=== PATIENT | male | born 1965 | race Caucasian/White ===

== ENCOUNTER 2018-07-02 12:28 | Emergency (ER) | payer BC ==
[2018-07-02] MEDS ORDERED: ADENOSINE 6 MG/2 ML VIAL ONE (12:38)
[2018-07-02] MEDS ORDERED: ADENOSINE 6 MG/2 ML VIAL IVP ONE (12:48)
[2018-07-02] MEDS ORDERED: NS 1,000 ML IV ONE (12:49)
[2018-07-02 13:06] LABS: PLATELET COUNT 178 10^3/uL (150-400)
--- NOTE | 2018-07-02 13:06 | CPEKG ---
Test Reason : OPEN Blood Pressure : / mmHG Vent. Rate : 190 BPM Atrial Rate : 192 BPM P-R Int : 000 ms QRS Dur : 092 ms QT Int : 269 ms P-R-T Axes : 000 069 009 degrees QTc Int : [address] depression, probably rate related Confirmed by Blayne Sanchez ([id number]) on 07/02/2018 1:06:48 PM Referred By: PHYSICIAN ED Confirmed By:Blayne Sanchez
--- NOTE | 2018-07-02 14:04 | EDPHY ---
H & P Time Seen by Provider: 07/02/18 12:48 HPI/ROS: Chief complaint. Rapid heart rate HPI. Patient is a 53-year-old male with known history of SVT. He presents with rapid heart rate beginning about 1 hr ago. No chest discomfort other than awareness of rapid beat. No shortness of breath. Slight lightheaded. Similar symptoms to previous. Sometimes the patient can stop the rapid heartbeat himself. Otherwise he has previously had adenosine with success. Visiting from [place]. Otherwise not ill. ROS 10 systems were reviewed and negative with the exception of the elements mentioned in the history of present illness Past Medical/Surgical History: SVT, hypertension, dyslipidemia Social History: , nonsmoker, no alcohol Smoking Status: Never smoked Physical Exam: General Appearance: Alert well-developed male moderate distress vital signs significant for heart rate 2 0 for Eyes: Pupils equal and round no pallor or injection. ENT, Mouth: Mucous membranes are moist. Respiratory: There are no retractions, lungs are clear to auscultation. Cardiovascular: Regular rate and rhythm. Tachycardia Gastrointestinal: Abdomen is soft and nontender, no masses, bowel sounds normal. Neurological: Awake and alert, sensory and motor exams grossly normal. Skin: Warm and dry, no rashes. Musculoskeletal: Neck is supple nontender. Extremities symmetrical, full range of motion. Psychiatric: Patient is oriented X 3, there is no agitation. Constitutional: Initial Vital Signs Temperature (C) 37.1 C 07/02/18 12:31 Heart Rate 204 H 07/02/18 12:31 Respiratory Rate 16 07/02/18 12:31 Blood Pressure 143/98 H 07/02/18 12:31 O2 Sat (%) 16 L 07/02/18 12:31 O2 Delivery Mode Room Air Home Medications: Medication Instructions Recorded Metoprolol Tartrate 07/02/18 Multivitamins 07/02/18 Simvastatin 07/02/18 Medical Decision Making - Diagnostics EKG Interpretation: EKG shows SVT. Normal axis. QRS is normal. Really no significant ST elevation or depression. The rate is 190 Post conversion EKG shows sinus tachycardia with normal interval and axis. QRS is normal there is no significant ST elevation or depression. No arrhythmia. The rate is 111 Imaging Results: Imaging Impressions Chest X-Ray 07/02/18 12:49 Impression: Negative portable chest. Procedures: IV normal saline. Adenosine 6 mg IV push ED Course/Re-evaluation: Patient converts to normal sinus rhythm with 6 mg of adenosine. Re-evaluation 2:05 p.m.. Patient is without symptoms. Current heart rate is 78 with blood pressure 149/92 Patient and I discussed EKG and lab results. We discussed treatment plan including criteria for return and importance of follow-up and further evaluation. He expresses understanding and agreement Differential Diagnosis: SVT which he has had before. I considered acute coronary syndrome, electrolyte abnormality - Data Points Laboratory Results: Laboratory Results 07/02/18 12:45 07/02/18 12:45 07/02/18 07/02/18 07/02/18 12:49 12:45 12:45 WBC 7.02 10^3/uL 10^3/uL (3.80-9.50) RBC 5.06 10^6/uL 10^6/uL (4.40-6.38) Hgb 15.2 g/dL g/dL (13.7-17.5) Hct 44.6 % % (40.0-51.0) MCV 88.1 fL fL (81.5-99.8) MCH 30.0 pg pg (27.9-34.1) MCHC 34.1 g/dL g/dL (32.4-36.7) RDW 12.3 % % (11.5-15.2) Plt Count 178 10^3/uL 10^3/uL (150-400) MPV 11.4 fL fL (8.7-11.7) Neut % (Auto) 36.1 % L % (39.3-74.2) Lymph % (Auto) 51.1 % H % (15.0-45.0) Tompkins % (Auto) 10.4 % % (4.5-13.0) Eos % (Auto) 1.9 % % (0.6-7.6) Baso % (Auto) 0.4 % % (0.3-1.7) Nucleat RBC Rel Count 0.0 % % (0.0-0.2) Absolute Neuts (auto) 2.53 10^3/uL 10^3/uL (1.70-6.50) Absolute Lymphs (auto) 3.59 10^3/uL H 10^3/uL (1.00-3.00) Absolute Monos (auto) 0.73 10^3/uL 10^3/uL (0.30-0.80) Absolute Eos (auto) 0.13 10^3/uL 10^3/uL (0.03-0.40) Absolute Basos (auto) 0.03 10^3/uL 10^3/uL (0.02-0.10) Absolute Nucleated RBC 0.00 10^3/uL 10^3/uL (0-0.01) Immature Gran % 0.1 % % (0.0-1.1) Immature Gran # 0.01 10^3/uL 10^3/uL (0.00-0.10) Sodium 139 mEq/L mEq/L (135-145) Potassium 4.3 mEq/L mEq/L (3.5-5.2) Chloride 102 mEq/L mEq/L (97-110) Carbon Dioxide 26 mEq/l mEq/l (22-31) Anion Gap 11 mEq/L mEq/L (6-14) BUN 19 mg/dL mg/dL (7-23) Creatinine 0.8 mg/dL mg/dL (0.7-1.3) Estimated GFR > 60 Glucose 91 mg/dL mg/dL (70-100) Calcium 9.6 mg/dL mg/dL (8.5-10.4) POC Troponin I 0.00 ng/mL ng/mL (0.00-0.08) Medications Given: Discontinued Medications Adenosine (Adenosine) 6 mg IVP EDNOW ONE Stop: 07/02/18 12:49 Last Admin: 07/02/18 12:54 Dose: 6 mg Sodium Chloride (Ns) 1,000 mls @ 0 mls/hr IV EDNOW ONE; Wide Open PRN Reason: Protocol Stop: 07/02/18 12:50 Last Admin: 07/02/18 12:54 Dose: 1,000 mls Point of Care Test Results: Chemistry 07/02/18 12:49 POC Troponin I 0.00 ng/mL ng/mL (0.00-0.08) Departure - Departure Disposition: Home, Routine, Self-Care Clinical Impression: Supraventricular tachycardia Condition: Good Instructions: Supraventricular Tachycardia (ED) Additional Instructions: Drink plenty of fluids and stay hydrated. Continue regular medication Easy activity next 1-2 days. Do not go up in altitude. Return for chest discomfort, for rapid heart rate, trouble breathing Follow-up with your regular physician upon return home to [place] Referrals: LYNDSEY BARBOSA [Other] - As per Instructions
[2018-07-02 14:34] VITALS: BP 136/84
--- NOTE | 2018-07-02 14:35 | CPEKG ---
Test Reason : OPEN Blood Pressure : / mmHG Vent. Rate : 111 BPM Atrial Rate : 110 BPM P-R Int : 161 ms QRS Dur : 088 ms QT Int : 310 ms P-R-T Axes : 056 045 057 degrees QTc Int : 421 ms Sinus tachycardia Confirmed by Maldonado Salinas ([id number]) on 07/02/2018 2:35:02 PM Referred By: ONESIMO MARRERO Confirmed By:Maldonado Salinas
== END 2018-07-02 14:35 | disposition home or self-care (01) ==
DX: I47.1 Supraventricular tachycardia (principal); E86.9 Volume depletion, unspecified; I10 Essential (primary) hypertension; E78.5 Hyperlipidemia, unspecified
CPT/HCPCS: 84484-ER; 96374; J0153